=== PATIENT | male | born 1975 | race Caucasian/White ===

== ENCOUNTER 2024-03-06 11:17 | Emergency (ER) | payer MEDICAID ==
[~2024-03-06] VITALS: Ht 165.1 cm; Wt 129.2 kg
[2024-03-06 11:20] VITALS: TEMP 98.2
[2024-03-06] MEDS ORDERED: DOCU-148 PO (12:22)
[2024-03-06] MEDS ORDERED: PHEN51CR24 TOP (12:22)
[2024-03-06 12:28] VITALS: BP 132/86; PULSE 86; RESP 16; O2SAT 100
== END 2024-03-06 12:30 | disposition home or self-care (01) ==
LOC: ER 11:18
DX: K60.2 Anal fissure, unspecified (principal)
CPT/HCPCS: 99282